=== PATIENT | female | born 1990 | race Caucasian/White ===

== ENCOUNTER 2021-03-14 14:39 | Emergency (ER) | payer OTHER, SELFPAY ==
[2021-03-14 14:44] VITALS: BP 123/82; PULSE 101; RESP 14; TEMP 36.6; O2SAT 98
--- NOTE | 2021-03-14 14:45 | ED.GENADUL_ITS ---
Discharge Plan Disposition Patient Disposition: HOME Condition: Stable Discharge Details Clinical Impression: Crush injury of right foot Primary Care Provider: Kadi,Local ED Provider: Velvet Brandon Home Meds and New Rx's Prescriptions: Continued acetazolamide 125 MG tablet 125 mg PO DAILY PRN PRNRF: 0 duloxetine [Cymbalta] 20 MG capsule,delayed release(DR/EC) 20 mg PO DAILY RF: 0 ondansetron 4 mg Tablet,Disintegrating 4 mg PO Q8H RF: 0 Nurtec ODT 75 mg tablet,disintegrating 75 mg PO DAILY RF: 0 Discharge Instructions Instructions: Crush Injury (ED) Additional Instructions: Rest, ice, compression, elevation. Please take Tylenol or Ibuprofen with food every 4-6 hours as needed for pain and swelling. Wear the walking boot as needed for comfort. Follow up with primary care provider in 3-5 days. Return to ED sooner if any worsening or concerns. Increase oral fluids. Discharge Data Discharge Date/Time-TO BE ENTERED AT DEPARTURE: 03/14/21 16:12 Medical Decision Making 30-year-old female presents to the ER chief complaint of right foot pressure injury which occurred proximally 3 hours prior to arrival. Patient was moving a desk when some sheet rock came loose to landing on her right foot distal toes are cool to the touch sensation intact. Took Tylenol and ibuprofen prior to arrival. She has swelling noted to the dorsum and ecchymosis. XR ordered to R/O Fracture FINDINGS: BONES: No acute fracture is present. No bony destructive lesion is seen. There is a longitudinal lucency in the base of the right 5th metatarsal. JOINTS: No dislocation present. SOFT TISSUE: Normal. IMPRESSION: 1. No definite acute fracture or dislocation. 2. Longitudinal lucency seen through the base of the right 5th metatarsal. If there is clinical concern, a CT scan of the 5th metatarsal should be obtained for further evaluation. 3. Results of this exam have been verbally communicated with provider. Discussed x-rays with patient who verbalized understanding. She is not tender over the fifth metatarsal. Patient placed in a walking boot and instructed on RICE procedures. Instructed to follow-up if continued pain. Patient verbalized understanding. This text was generated using [employer] system, please disregard any oddities of phrase or misspellings. HPI General Mode of arrival: wheelchair . Date/Time Provider Initiated Documentation: 03/14/21 14:40 . Limitations to Documentation: no limitations . Information obtained by: patient and RN notes reviewed . HPI Narrative: 30-year-old female presents to the ER chief complaint of right foot pressure injury which occurred proximally 3 hours prior to arrival. Patient was moving a desk when some sheet rock came loose to landing on her right foot distal toes are cool to the touch sensation intact. Took Tylenol and ibuprofen prior to arrival. She has swelling noted to the dorsum and ecchymosis. Related Data Home Medications Medication Instructions Recorded Confirmed acetazolamide 125 mg PO DAILY PRN PRN 02/26/14 02/26/14 duloxetine [Cymbalta] 20 mg PO DAILY 02/26/14 02/26/14 Nurtec ODT 75 mg PO DAILY 03/14/21 03/14/21 ondansetron 4 mg PO Q8H 03/14/21 03/14/21 Allergies Allergy/AdvReac Type Severity Reaction Status Date / Time prednisone Allergy Psychosis Unverified 03/14/21 14:47 codeine AdvReac Intermediate hyperactive Unverified 03/14/21 14:47 Review of Systems Musculoskeletal Musculoskeletal: Reports as per HPI and Reports arthralgias PFSH All Active Problems (Updated 03/14/21 @ 15:55 by Velvet Brandon) Crush injury of right foot (Acute) Social History Smoking/Tobacco Use Status: Never Smoking risk assessment performed?: Yes Alcohol Intake: current Alcohol Intake frequency: holidays/special occasions only Drug use: Daily Substance use type: marijuana Details: Medicinal Marijuana daily Do you feel safe at home: Yes Exam Extrem Right lower extremity: foot Details: tenderness Location: of the dorsal foot and ecchymosis (Dorsal foot); no unusual warmth Ankle/foot/toe images: 1. Swelling and ecchymosis
--- NOTE | 2021-03-14 15:15 | DI.RAD_ITS ---
Exam(s) XR FOOT RT COMPLETE EXAM: XR FOOT RT COMPLETE CLINICAL HISTORY: Crush Injury, R/O Fracture. TECHNIQUE: 2D digital imaging was performed of the right foot. Three images were obtained. AP, obl ique and lateral views were obtained. COMPARISON: No exams were available for comparison FINDINGS: BONES: No acute fracture is present. No bony destructive lesion is seen. There is a longitudinal luce ncy in the base of the right 5th metatarsal. JOINTS: No dislocation present. SOFT TISSUE: Normal. IMPRESSION: 1. No definite acute fracture or dislocation. 2. Longitudinal lucency seen through the base of the right 5th metatarsal. If there is clinical conc mirna, a CT scan of the 5th metatarsal should be obtained for further evaluation. 3. Results of this exam have been verbally communicated with provider. DATA REPOSITORY: RADIATION DOSE DELIVERED:
[2021-03-14 16:00] VITALS: BP 113/74; PULSE 84; RESP 17; TEMP 36.9; O2SAT 97
[2021-03-14 16:05] VITALS: BP 113/74; PULSE 84; RESP 17; TEMP 36.9; O2SAT 97
== END 2021-03-14 16:12 | disposition home or self-care (01) ==
PROVIDERS: Emergency Provider Registered Nurse Emergency
DX: S97.81XA Crushing injury of right foot, initial encounter (principal); W23.0XXA Caught, crushed, jammed, or pinched between moving objects, initial encounter
CPT/HCPCS: 29515; 81025; 99283; 73630